=== PATIENT | female | born 1965 | race Caucasian/White ===

== ENCOUNTER 2019-05-10 23:18 | Day surgery (SDC) | payer OTHER ==
--- NOTE | 2019-05-10 23:46 | ED Physician Documentation ---
PD HPI FEMALE - Stated complaint Stated Complaint: R SIDE PAIN - Chief complaint Chief Complaint: Abd Pain - History obtained from History obtained from: Patient - History of Present Illness Timing - onset: How many days ago (3) Timing - duration: Days (3) Timing - details: Gradual onset Pain level max: 4 Associated symptoms: Fever, Abdominal pain. No: Dysuria, Urinary frequency, Hematuria Contributing factors: No: Similar symptoms before: Has not had sx before Recently seen: Not recently seen - Additional information Additional information: Is a 53-year-old woman who presents with her fianc complaints that she is got pain swelling and tightness on the right side of her abdomen. This started to develop about 3 days prior to presentation she thought she might be constipated so she took some senna [id number] it did not relieve any of her symptoms. The pains been getting increasingly worse and her daughter finally convinced her to come in to have it evaluated. The pain is worse with movement and walking. She rates it now to 4 out of 10 and did not take anything for it. She had a fever of 100.6 at home. Denies any recent illnessIs a 53-year-old woman who presents with her fianc complaints that she is got pain swelling and tightness on the right side of her abdomen. This started to develop about 3 days prior to presentation she thought she might be constipated so she took some senna [id number] it did not relieve any of her symptoms. The pains been getting increasingly worse and her daughter finally convinced her to come in to have it evaluated. The pain is worse with movement and walking. She rates it now to 4 out of 10 and did not take anything for it. She had a fever of 100.6 at home. Denies any recent illness or dysuria. Denies . She is not diabetic. She has had a bilateral tubal ligation. Review of Systems Constitutional: reports: Fever Throat: denies: Sore throat Cardiac: denies: Chest pain / pressure Respiratory: denies: Dyspnea, Cough GI: reports: Abdominal Pain, Nausea. denies: Vomiting, Diarrhea : denies: Dysuria, Frequency Skin: denies: Rash Musculoskeletal: denies: Back pain Neurologic: denies: Syncope, LOC Endocrine: reports: Other (She is not diabetic) PD PAST MEDICAL HISTORY - Present Medications Home Medications: Ambulatory Orders Medication Instructions Recorded Confirmed FLUoxetine [PROzac] 40 mg PO DAILY 05/10/19 05/10/19 Losartan [Cozaar] 50 mg PO DAILY 05/10/19 05/10/19 [place]-3/Dha/Epa/Fish Oil [Fish Oil 1 each PO DAILY 05/10/19 05/10/19 1,000 mg Softgel] RX: Hydrochlorothiazide 12.5 mg PO DAILY 05/10/19 05/10/19 RX: Magnesium 0 mg PO DAILY 05/10/19 05/10/19 RX: Simvastatin 40 mg PO DAILY 05/10/19 05/10/19 busPIRone [Buspar] 20 mg PO BID 05/10/19 05/10/19 metFORMIN [Glucophage] 500 mg PO DAILY 05/10/19 05/10/19 - Allergies Allergies/Adverse Reactions: Allergies Allergy/AdvReac Type Severity Reaction Status Date / Time No Known Drug Allergies Allergy Verified 05/10/19 23:25 PD ED PE NORMAL - Vitals Vital signs reviewed: Yes - General General: Alert and oriented X 3, No acute distress, Well developed/nourished - HEENT HEENT: Atraumatic, PERRL, Pharynx benign, Other (Mucous membranes are dry) - Neck Neck: Supple, no meningeal sign, No adenopathy, Thyroid normal - Cardiac Cardiac: RRR, No murmur, Strong equal pulses - Respiratory Respiratory: No respiratory distress, Clear bilaterally - Abdomen Abdomen: Other (Hypoactive bowel tones. 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, No motor deficit, No sensory deficit - Psych Psych: Normal mood, Normal affect Results - Vitals Vitals: Vital Signs - 24 hr 05/10/19 05/10/19 05/11/19 23:21 23:30 01:24 Temperature 37.4 C Heart Rate 95 80 Respiratory 18 16 18 Rate Blood Pressure 153/95 H 139/70 H O2 Saturation 98 96 05/11/19 05/11/19 03:12 05:00 Temperature Heart Rate 85 70 Respiratory 10 L Rate Blood Pressure 139/70 H 122/69 O2 Saturation 92 93 Oxygen O2 Source Room air - Labs Labs: Laboratory Tests 05/11/19 05/11/19 05/11/19 00:00 00:00 00:10 WBC 14.4 H RBC 4.29 Hgb 11.9 L Hct 36.6 L MCV 85.3 MCH 27.7 MCHC 32.5 RDW 15.3 H Plt Count 238 MPV 10.4 Neut # (Auto) 10.2 H Lymph # (Auto) 2.7 [place] # (Auto) 1.2 H Eos # (Auto) 0.1 Baso # (Auto) 0.0 Absolute Nucleated RBC 0.00 Nucleated RBC % 0.0 Sodium Potassium Chloride Carbon Dioxide Anion Gap BUN Creatinine Estimated GFR (MDRD) Glucose Calcium Total Bilirubin AST ALT Alkaline Phosphatase Total Protein Albumin Globulin Albumin/Globulin Ratio Lipase Urine Color YELLOW Urine Clarity CLEAR Urine pH 6.0 Ur Specific [place] <=1.005 <1.005 Urine Protein NEGATIVE Urine Glucose (UA) 250 H Urine Ketones NEGATIVE Urine Occult Blood SMALL H Urine Nitrite NEGATIVE Urine Bilirubin NEGATIVE Urine Urobilinogen 0.2 (NORMAL) Ur Leukocyte Esterase NEGATIVE Urine RBC 0-5 Urine WBC 0-3 Ur Squamous Epith Cells MOD Squamous H Urine Bacteria Rare Ur Microscopic Review INDICATED Urine Culture Comments NOT INDICATED Urine HCG, Qual NEGATIVE 05/11/19 00:10 WBC RBC Hgb Hct MCV MCH MCHC RDW Plt Count MPV Neut # (Auto) Lymph # (Auto) [place] # (Auto) Eos # (Auto) Baso # (Auto) Absolute Nucleated RBC Nucleated RBC % Sodium 137 Potassium 3.6 Chloride 103 Carbon Dioxide 24 Anion Gap 10.0 BUN 8 Creatinine 0.7 Estimated GFR (MDRD) 88 L Glucose 131 H Calcium 9.0 Total Bilirubin 0.3 AST 17 ALT 24 Alkaline Phosphatase 76 Total Protein 7.9 Albumin 3.4 Globulin 4.5 H Albumin/Globulin Ratio 0.8 L Lipase 30 Urine Color Urine Clarity Urine pH Ur Specific [place] Urine Protein Urine Glucose (UA) Urine Ketones Urine Occult Blood Urine Nitrite Urine Bilirubin Urine Urobilinogen Ur Leukocyte Esterase Urine RBC Urine WBC Ur Squamous Epith Cells Urine Bacteria Ur Microscopic Review Urine Culture Comments Urine HCG, Qual PD MEDICAL DECISION MAKING - ED course Complexity details: reviewed results, re-evaluated patient, d/w patient, d/w salon sales consultant ED course: Patient initially declined any pain medications. Her white blood cell count was 14.4. Her CT scan confirmed acute appendicitis this was discussed with Dr. Brush and she requested Zosyn and will take pateint to OR in the morning. Plan discussed with patient. She did agree to pain medication. Departure - Departure Disposition: ED Transfer to [facility] Clinical Impression: Appendicitis
[2019-05-10] MEDS ORDERED: SODIUM CHLORIDE 0.9% 1,000 ML IV ONE (23:54)
[2019-05-11] MEDS ORDERED: IOVERSOL 320 100 ML VIAL IVP ONE ×2 (00:20→01:20)
[2019-05-11 00:30] LABS: BASOPHILS % (AUTO) 0.1 %; EOSINOPHILS # (AUTO) 0.1 10^3/uL (0.0-0.7); EOSINOPHILS % (AUTO) 0.9 %; HGB - HEMOGLOBIN 11.9 g/dL (12.0-16.0); LYMPHOCYTES # (AUTO) 2.7 10^3/uL (1.5-3.5); LYMPHOCYTES % (AUTO) 18.8 %; MEAN CORPUSCULAR HEMOGLOBIN 27.7 pg (27.0-31.0); MEAN CORPUSCULAR HGB CONC 32.5 g/dL (32.0-36.0); MEAN CORPUSCULAR VOLUME 85.3 fL (81.0-99.0); MEAN PLATELET VOLUME 10.4 fL (7.9-10.8); MONOCYTES # (AUTO) 1.2 10^3/uL (0.0-1.0); MONOCYTES % (AUTO) 8.3 %; NEUTROPHILS # (AUTO) 10.2 10^3/uL (1.5-6.6); NEUTROPHILS % (AUTO) 71.2 %; PLT - PLATELET COUNT 238 10^3/uL (130-450); RED BLOOD COUNT 4.29 10^6/uL (4.20-5.40); RED CELL DISTRIBUTION WIDTH 15.3 % (12.0-15.0); WHITE BLOOD COUNT 14.4 x10^3/uL (4.8-10.8)
[2019-05-11 00:32] LABS: BILIRUBIN,URINE NEGATIVE (NEGATIVE); CLARITY,URINE CLEAR (CLEAR); GLUCOSE, URINE (UA) 250 mg/dL (NEGATIVE); KETONES,URINE (UA) NEGATIVE (NEGATIVE); LEUKOCYTE ESTERASE, URINE NEGATIVE (NEGATIVE); NITRITE,URINE NEGATIVE (NEGATIVE); OCCULT BLOOD,URINE SMALL (NEGATIVE); PROTEIN,URINE NEGATIVE (NEGATIVE); UROBILINOGEN,URINE 0.2 (NORMAL) E.U./dL (NORMAL)
[2019-05-11 00:42] LABS: ALBUMIN 3.4 g/dL (3.2-5.5); ALBUMIN/GLOBULIN RATIO 0.8 (1.0-2.2); BILIRUBIN,TOTAL 0.3 mg/dL (0.2-1.0); CREATININE 0.7 mg/dL (0.4-1.0); TOTAL PROTEIN 7.9 g/dL (6.7-8.2)
[2019-05-11 00:45] LABS: BACTERIA,URINE Rare /HPF (None Seen); HCG UR QUAL NEGATIVE; RBC,URINE 0-5 /HPF (0-5); SQUAMOUS EPITHELIAL CELL,UR MOD Squamous (<= Few)
--- NOTE | 2019-05-11 01:31 | CT Report ---
Reason: Abd pain Procedure Date: 05/11/2019 Accession Number: [id number] / [id number] Procedure: CT - Abdomen/Pelvis W CPT Code: FULL RESULT: EXAM: CT ABDOMEN AND PELVIS EXAM DATE: 05/11/2019 01:15 AM. CLINICAL HISTORY: Abdominal pain. COMPARISONS: None. TECHNIQUE: Routine helical CT imaging was performed through the abdomen and pelvis. IV contrast: 100 mL OPTI 320. Enteric contrast: No. Reconstructions: Coronal and sagittal. In accordance with CT protocol optimization, one or more of the following dose reduction techniques were utilized for this exam: automated exposure control, adjustment of mA and/or KV based on patient size, or use of iterative reconstructive technique. FINDINGS: Lung Bases: Unremarkable. Liver: Normal. No masses. Gallbladder/Bile Ducts: There is a 2.4 cm gallstone. No evidence of cholecystitis or bile duct obstruction. Spleen: Normal. Pancreas: Normal. Adrenal Glands: Normal. Kidneys: Multiple right renal cysts measuring up to 5.4 cm. No suspicious renal mass or hydronephrosis. Peritoneal Cavity/Bowel: No bowel obstruction. The appendix is dilated to 8 mm. There is mural thickening and periappendiceal inflammatory stranding consistent with acute appendicitis. No evidence of perforation or abscess. Pelvic Organs: The uterus is mildly enlarged with lobulated contours secondary to small fibroids. No pelvic mass or lymphadenopathy. No fluid collections. Urinary bladder is unremarkable. Vasculature: No aneurysms or other significant abnormality. Bones: No significant abnormality. Other: None. IMPRESSION: 1. Acute appendicitis. 2. Cholelithiasis. 3. Uterine fibroids. RADIA
[2019-05-11] MEDS ORDERED: PIPERACILLIN/TAZOBACTAM 4.5 GM in SODIUM CHLORIDE 0.9% MINIBAG 100 ML IV STA ×2 (01:43→08:33)
[2019-05-11] MEDS ORDERED: HYDROmorphone 1 MG/ML CARPUJECT IVP STA ×2 (01:43→07:02)
[2019-05-11] MEDS ORDERED: ONDANSETRON 4 MG/2 ML VIAL IVP STA (01:43)
--- NOTE | 2019-05-11 08:52 | HISTORY & PHYSICAL EXAMINATION ---
HPI - Admitted From Admitted from: ED - History Obtained From Records Reviewed: RN notes reviewed, Old records reviewed History obtained from: Patient Exam limitations: No limitations - History of Present Illness Pain/Problem Location Description: Right lower quadrant pain Severity at the worst: reports: Moderate Pain Quality: reports: Dull, Aching, Throbbing Context-Pain started w/: reports: Rest Timing: reports: Gradual onset Duration: reports: Days: (3) Improved with: reports: Nothing Worsened by: reports: Movement, Palpation Associated symptoms: reports: General Weakness, Other (Fever of 100.6 at home) PMH/PSH - Past Medical History Cardiovascular: positive: Hypertension Respiratory: positive: None Neuro: positive: None Endocrine/Autoimmune: positive: Other GI: positive: Chronic constipation : positive: Incontinence Psych: positive: Depression, Anxiety MRSA Hx?: No Other Past Medical History: metabolic syndrom AlC 6.1 - Past Surgical History 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 ligation Social & Family Hx - Living Situation Living Arrangement: At home - Social History Does the pt smoke?: No Smoking Status: Former smoker Does the pt drink ETOH?: Yes ETOH Use: Liquor Does the pt have substance abuse?: No - POLST Patient has POLST: No Meds/Allgy - Home Medications Home Medications: Ambulatory Orders Medication Instructions Recorded Confirmed FLUoxetine [PROzac] 40 mg PO DAILY 05/10/19 05/10/19 Hydrochlorothiazide 12.5 mg PO DAILY 05/10/19 05/10/19 Losartan [Cozaar] 50 mg PO DAILY 05/10/19 05/10/19 Magnesium 0 mg PO DAILY 05/10/19 05/10/19 [place]-3/Dha/Epa/Fish Oil [Fish Oil 1 each PO DAILY 05/10/19 05/10/19 1,000 mg Softgel] Simvastatin 40 mg PO DAILY 05/10/19 05/10/19 busPIRone [Buspar] 20 mg PO BID 05/10/19 05/10/19 metFORMIN [Glucophage] 500 mg PO DAILY 05/10/19 05/10/19 - Allergies Allergies/Adverse Reactions: Allergies Allergy/AdvReac Type Severity Reaction Status Date / Time No Known Drug Allergies Allergy Verified 05/10/19 23:25 Review of Systems - Constitutional Constitutional: reports: Fatigue, Fever, Poor appetite - Eyes Eyes: denies: Pain, Irritation, Blurred vision - Ears, Nose & Throat Ears, Nose & Throat: denies: Tinnitus, Vertigo - Cardiovascular Cariovascular: denies: Irregular heart rate, Palpitations, Chest pain - Respiratory Respiratory: denies: Cough, Sputum production, Wheezing, Orthopnea - Gastrointestinal Gastrointestinal: reports: Abdominal pain, Constipation, Nausea, Bloating, Poor appetite - Genitourinary Genitourinary: denies: Dysuria, Frequency, Urgency, Hematuria - Musculoskeletal Musculoskeletal: denies: Limited range of motion, Muscle weakness - Integumentary Integumentary: denies: Rash, Pruritis, Lesions - Neurological Neurological: denies: General weakness, Focal weakness, Headache - Endocrine Endocrine: denies: Polyuria, Polydypsia - Hematologic/Lymphatic Hematologic/Lymphatic: denies: Anemia, Bruising, Petechiae, Blood clots - All Other Systems All Other Systems: reports: Reviewed and negative Exam - Vital Signs Reviewed Vital Signs: Yes Vital Signs: Vital Signs x48h Temp Pulse Resp BP Pulse Ox 05/11/19 08:02 36.7 C 68 14 118/72 96 05/11/19 06:00 70 12 122/72 93 05/11/19 05:00 70 10 L 122/69 93 05/11/19 03:12 85 139/70 H 92 05/11/19 01:24 80 18 139/70 H 96 - Physical Exam General Appearance: positive: No acute distress Eyes Bilateral: positive: Normal inspection, PERRL, EOMI ENT: positive: ENT inspection nml, Pharynx nml Neck: positive: Nml inspection, Thyroid nml, No JVD, Trachea midline, Thyromegaly. negative: Lymphadenopathy (R), Lymphadenopathy (L) Cardiovascular: positive: Regular rate & rhythm, No murmur, No gallop Peripheral Pulses: positive: 1+ Abdomen: positive: Tenderness (Right lower quadrant and periumbilical) Back: positive: Nml inspection. negative: CVA tenderness (R), CVA tenderness (L) Skin: positive: Color nml Extremities: positive: Non-tender Neurologic/Psychiatric: positive: Oriented x3, CN's nml (2-12) Results - Lab Results Fish Bones: 05/11/19 00:10 05/11/19 00:10 Other Lab Results: Lab Results x24hrs 05/11/19 05/11/19 05/11/19 Range/Units 00:10 00:10 00:00 WBC 14.4 H (4.8-10.8) x10^3/uL RBC 4.29 (4.20-5.40) 10^6/uL Hgb 11.9 L (12.0-16.0) g/dL Hct 36.6 L (37.0-47.0) % MCV 85.3 (81.0-99.0) fL MCH 27.7 (27.0-31.0) pg MCHC 32.5 (32.0-36.0) g/dL RDW 15.3 H (12.0-15.0) % Plt Count 238 (130-450) 10^3/uL MPV 10.4 (7.9-10.8) fL Neut # (Auto) 10.2 H (1.5-6.6) 10^3/uL Lymph # (Auto) 2.7 (1.5-3.5) 10^3/uL [place] # (Auto) 1.2 H (0.0-1.0) 10^3/uL Eos # (Auto) 0.1 (0.0-0.7) 10^3/uL Baso # (Auto) 0.0 (0.0-0.1) 10^3/uL Absolute Nucleated RBC 0.00 x10^3/uL Nucleated RBC % 0.0 /100WBC Sodium 137 (135-145) mmol/L Potassium 3.6 (3.5-5.0) mmol/L Chloride 103 (101-111) mmol/L Carbon Dioxide 24 (21-32) mmol/L Anion Gap 10.0 (6-13) BUN 8 (6-20) mg/dL Creatinine 0.7 (0.4-1.0) mg/dL Estimated GFR (MDRD) 88 L (>89) Glucose 131 H (70-100) mg/dL Calcium 9.0 (8.5-10.3) mg/dL Total Bilirubin 0.3 (0.2-1.0) mg/dL AST 17 (10-42) IU/L ALT 24 (10-60) IU/L Alkaline Phosphatase 76 (42-121) IU/L Total Protein 7.9 (6.7-8.2) g/dL Albumin 3.4 (3.2-5.5) g/dL Globulin 4.5 H (2.1-4.2) g/dL Albumin/Globulin Ratio 0.8 L (1.0-2.2) Lipase 30 (22-51) U/L Urine Color Urine Clarity (CLEAR) Urine pH (5.0-7.5) PH Ur Specific [place] <1.005 (1.002-1.030) Urine Protein (NEGATIVE) mg/dL Urine Glucose (UA) (NEGATIVE) mg/dL Urine Ketones (NEGATIVE) mg/dL Urine Occult Blood (NEGATIVE) Urine Nitrite (NEGATIVE) Urine Bilirubin (NEGATIVE) Urine Urobilinogen (NORMAL) E.U./dL Ur Leukocyte Esterase (NEGATIVE) Urine RBC (0-5) /HPF Urine WBC (0-5) /HPF Ur Squamous Epith Cells (<= Few) Urine Bacteria (None Seen) /HPF Ur Microscopic Review Urine Culture Comments Urine HCG, Qual NEGATIVE 05/11/19 Range/Units 00:00 WBC (4.8-10.8) x10^3/uL RBC (4.20-5.40) 10^6/uL Hgb (12.0-16.0) g/dL Hct (37.0-47.0) % MCV (81.0-99.0) fL MCH (27.0-31.0) pg MCHC (32.0-36.0) g/dL RDW (12.0-15.0) % Plt Count (130-450) 10^3/uL MPV (7.9-10.8) fL Neut # (Auto) (1.5-6.6) 10^3/uL Lymph # (Auto) (1.5-3.5) 10^3/uL [place] # (Auto) (0.0-1.0) 10^3/uL Eos # (Auto) (0.0-0.7) 10^3/uL Baso # (Auto) (0.0-0.1) 10^3/uL Absolute Nucleated RBC x10^3/uL Nucleated RBC % /100WBC Sodium (135-145) mmol/L Potassium (3.5-5.0) mmol/L Chloride (101-111) mmol/L Carbon Dioxide (21-32) mmol/L Anion Gap (6-13) BUN (6-20) mg/dL Creatinine (0.4-1.0) mg/dL Estimated GFR (MDRD) (>89) Glucose (70-100) mg/dL Calcium (8.5-10.3) mg/dL Total Bilirubin (0.2-1.0) mg/dL AST (10-42) IU/L ALT (10-60) IU/L Alkaline Phosphatase (42-121) IU/L Total Protein (6.7-8.2) g/dL Albumin (3.2-5.5) g/dL Globulin (2.1-4.2) g/dL Albumin/Globulin Ratio (1.0-2.2) Lipase (22-51) U/L Urine Color YELLOW Urine Clarity CLEAR (CLEAR) Urine pH 6.0 (5.0-7.5) PH Ur Specific [place] <=1.005 (1.002-1.030) Urine Protein NEGATIVE (NEGATIVE) mg/dL Urine Glucose (UA) 250 H (NEGATIVE) mg/dL Urine Ketones NEGATIVE (NEGATIVE) mg/dL Urine Occult Blood SMALL H (NEGATIVE) Urine Nitrite NEGATIVE (NEGATIVE) Urine Bilirubin NEGATIVE (NEGATIVE) Urine Urobilinogen 0.2 (NORMAL) (NORMAL) E.U./dL Ur Leukocyte Esterase NEGATIVE (NEGATIVE) Urine RBC 0-5 (0-5) /HPF Urine WBC 0-3 (0-5) /HPF Ur Squamous Epith Cells MOD Squamous H (<= Few) Urine Bacteria Rare (None Seen) /HPF Ur Microscopic Review INDICATED Urine Culture Comments NOT INDICATED Urine HCG, Qual - Diagnostic Imaging Results Diagnostic Imaging Results: positive: Final report reviewed Diagnostic Imaging Results Comments: Acute appendicitis and cholelithiasis. Impression/Plan - Problem List Problem List: Acute appendicitis - I have recommended laparoscopic appendectomy with indicated procedure. We have discussed the risks and benefits of the procedure and the patient has expressed as desire to complete it today. The surgery crew is on their way in Cholelithiasis - symptomatic at this time. I have discussed this with the patient. She is diabetic and will need to have an elective cholecystectomy in the future. I do not recommend it be combined with the emergency procedure as it increases her risk of complications in the setting of acute infection.
--- NOTE | 2019-05-11 09:15 | ANESTHESIA ---
Pre-Anesthesia VS, & Labs - Diagnosis appendicitis - Procedure laparoscopic appendectomy Vital Signs: Temp Pulse Resp BP Pulse Ox 36.7 C 68 14 118/72 96 05/11/19 08:02 05/11/19 08:02 05/11/19 08:02 05/11/19 08:02 05/11/19 08:02 Height 5 ft 7 in Weight (kg) 99.79 kg Body Mass Index 34.4 - NPO >8 hours - Is Patient ?: No - Lab Results Current Lab Results: Laboratory Tests 05/11/19 00:10: Sodium 137, Potassium 3.6, Chloride 103, Carbon Dioxide 24, Anion Gap 10.0, BUN 8, Creatinine 0.7, Estimated GFR (MDRD) 88 L, Glucose 131 H, Calcium 9.0, Total Bilirubin 0.3, AST 17, ALT 24, Alkaline Phosphatase 76, Total Protein 7.9, Albumin 3.4, Globulin 4.5 H, Albumin/Globulin Ratio 0.8 L, Lipase 30 05/11/19 00:10: WBC 14.4 H, RBC 4.29, Hgb 11.9 L, Hct 36.6 L, MCV 85.3, MCH 27.7, MCHC 32.5, RDW 15.3 H, Plt Count 238, MPV 10.4, Neut # (Auto) 10.2 H, Lymph # (Auto) 2.7, [place] # (Auto) 1.2 H, Eos # (Auto) 0.1, Baso # (Auto) 0.0, Absolute Nucleated RBC 0.00, Nucleated RBC % 0.0 Lab results reviewed: Yes Fish Bones: 05/11/19 00:10 05/11/19 00:10 Home Medications and Allergies Home Medications: Ambulatory Orders FLUoxetine [PROzac] 40 mg PO DAILY 05/10/19 Hydrochlorothiazide 12.5 mg PO DAILY 05/10/19 Losartan [Cozaar] 50 mg PO DAILY 05/10/19 Magnesium 0 mg PO DAILY 05/10/19 [place]-3/Dha/Epa/Fish Oil [Fish Oil 1,000 mg Softgel] 1 each PO DAILY 05/10/19 Simvastatin 40 mg PO DAILY 05/10/19 busPIRone [Buspar] 20 mg PO BID 05/10/19 metFORMIN [Glucophage] 500 mg PO DAILY 05/10/19 FLUoxetine [PROzac] 40 mg PO DAILY 05/10/19 Hydrochlorothiazide 12.5 mg PO DAILY 05/10/19 Losartan [Cozaar] 50 mg PO DAILY 05/10/19 Magnesium 0 mg PO DAILY 05/10/19 [place]-3/Dha/Epa/Fish Oil [Fish Oil 1,000 mg Softgel] 1 each PO DAILY 05/10/19 Simvastatin 40 mg PO DAILY 05/10/19 busPIRone [Buspar] 20 mg PO BID 05/10/19 metFORMIN [Glucophage] 500 mg PO DAILY 05/10/19 Allergies/Adverse Reactions: Allergies Allergy/AdvReac Type Severity Reaction Status Date / Time No Known Drug Allergies Allergy Verified 05/10/19 23:25 Anes History & Medical History - Anesthetic History Anesthesia Complications: reports: No previous complications Family history of Anesthesia Complications: Denies Family history of Malignant Hyperthermia: Denies - Medical History Cardiovascular: reports: Hypertension Pulmonary: reports: None Gastrointestinal: reports: Chronic constipation Urinary: reports: Incontinence Neuro: reports: None Endocrine/Autoimmune: reports: Other Blood Disorders: reports: Anemia Smoking Status: Former smoker Other Past Medical History: metabolic syndrom AlC 6.1 - Surgical History General: Other Gynecologic: Tubal ligation Exam General: Alert, Oriented x3, Cooperative, No acute distress Dental: WNL Mouth Openin Fingerbreadth Neck Mobility: Normal Mallampati classification: III Thyromental Distance: 4-6 cm Respiratory: Lungs clear, Normal breath sounds, No respiratory distress, No accessory muscle use Cardiovascular: Regular rate, Normal S1, Normal S2, No murmurs Plan Anesthesia Type: General Consent for Procedure(s) Verified and Reviewed: Yes Code Status: Attempt Resuscitation ASA classification: 2-Mild systemic disease Is this case an emergency?: Yes
[2019-05-11] MEDS ORDERED: LIDOCAINE MPF 1%-EPI 1:200000 30 ML VIAL ONE (09:29)
[2019-05-11] MEDS ORDERED: BUPIVACAINE 0.5% PF 10 ML VIAL ONE (09:30)
[2019-05-11] MEDS ORDERED: ONDANSETRON 4 MG/2 ML VIAL IVP ONE (09:42)
[2019-05-11] MEDS ORDERED: fentaNYL 100 MCG/2 ML VIAL IVP ONE (09:42)
[2019-05-11] MEDS ORDERED: LIDOCAINE-MPF 2% 5 ML VIAL IM ONE (09:42)
[2019-05-11] MEDS ORDERED: ROCURONIUM 50 MG/5 ML VIAL IVP ONE (09:42)
[2019-05-11] MEDS ORDERED: ACETAMINOPHEN 1,000 MG/100 ML 100 ML IV ONE (09:42)
[2019-05-11] MEDS ORDERED: KETOROLAC 30 MG/ML VIAL IVP ONE (09:42)
[2019-05-11] MEDS ORDERED: DEXAMETHASONE 4 MG/ML VIAL IVP ONE (09:42)
[2019-05-11] MEDS ORDERED: PROPOFOL 200 MG/20 ML VIAL IVP ONE (09:42)
[2019-05-11] MEDS ORDERED: LIDOCAINE 1%-EPI 1:100000 30 ML MDV SUBQ ONE ×2 (10:17)
[2019-05-11] MEDS ORDERED: BUPIVACAINE 0.5% PF 30 ML VIAL SUBQ ONE ×2 (10:17)
[2019-05-11] MEDS ORDERED: SUGAMMADEX 200 MG/2 ML VIAL IVP ONE (10:36)
--- NOTE | 2019-05-11 10:42 | OPERATIVE REPORT ---
Operative Report - General Procedure Date: 05/11/19 Planned Procedure: Laparoscopic appendectomy Pre-Op Diagnosis: Acute appendicitis Procedure Performed: Laparoscopic appendectomy Post Op Diagnosis: Same - Procedure Note Primary Surgeon: Gonsalo Anesthesia Provider: MD An Anesthesia Technique: General ET tube, Local Pathology: Appendix to pathology in formalin Estimated Blood Loss (mL): 10 Indications: Acute appendicitis Findings: Acute separative appendicitis without gross evidence of perforation Complications: None apparent - Other Other Information/Narrative: After obtaining informed consent, the patient is brought to the operating room and placed in the supine position on the operating table. Following successful induction of general endotracheal anesthesia, appropriate padding of all bony prominences, and placement appropriate monitors, the abdomen is prepped and draped in the standard surgical fashion. A timeout was held per NMOAP protocol. Following infiltration with local anesthetic to create a field block, an incision was created inferior to the umbilicus and carried down through the skin and subtendinous tissue to reveal the fascia below. 2-0 Vicryl retention sutures were placed on either side of the midline and the abdomen was entered under direct vision using a 15 blade scalpel. A 10 mm blunt Jay balloon trocar was placed in the abdominal cavity and it was insufflated to 15 mmHg pressure.Patient was placed in Trendelenburg position with the left side rotated toward the floor.A 5 mm trocar was placed in the right upper quadrant and a second 5 mm trocar placed midway between the umbilicus and the pubis. Both of the sites were infiltrated with local anesthetic prior to placing his trochars. The right lower quadrant was examined and a small phlegmon was identified. Careful dissection revealed the appendix in the into cecal position. A window was created at the junction of the appendix and the cecum. A load of the lap scopic LESA stapling device was used to liberate the appendix from its attachment to the cecum. A second load was used to ligate the mesoappendix. The appendix was then placed in a laparoscopic Endo Catch bag and removed via the umbilical port. The wound was checked for hemostasis and irrigated with warm saline solution. It was aspirated free of all fluid and particulate matter. All staple lines were examined and there was no evidence of bleeding or injury to any portion of the bowel. The patient was then flattened and the trochars were removed under direct vision. The abdomen was carefully desufflated. The umbilical incision was closed with interrupted #1 Prolene sutures and 0 Vicryl sutures left in place as retention sutures.The remaining skin incisions were miguel sed with Monocryl sutures. All sponge, needle, and instrument counts were correct at the conclusion of the case. The patient was allowed to awaken from anesthesia without difficulty and taken to the postanesthesia care unit in good condition.
[2019-05-11] MEDS ORDERED: LACTATED RINGERS 1,000 ML IV ONE ×3 (10:45→11:01)
[2019-05-11] MEDS ORDERED: ONDANSETRON 4 MG/2 ML VIAL IVP PRN ×2 (10:52→12:10)
[2019-05-11] MEDS ORDERED: HYDROmorphone 0.5 MG/0.5 ML SYRINGE IVP PRN ×2 (10:52→12:10)
[2019-05-11] MEDS ORDERED: oxyCODONE 5 MG TABLET PO PRN ×2 (10:52→12:10)
[2019-05-11 13:48] VITALS: BP 122/70
== END 2019-05-11 14:21 | disposition home or self-care (01) ==
LOC: ED 23:18 → SDS 05-11 08:34 → ED 05-11 09:41 → SDS 05-11 11:50 → MS2 05-11 11:53 → SDS 05-11 14:21
PROVIDERS: ATTEND Surgery
PROC: 0DTJ4ZZ Resection of Appendix, Percutaneous Endoscopic Approach (ICD-10-PCS; principal; 2019-05-11 09:17)
DX: K35.33 Acute appendicitis with perforation, localized peritonitis, and gangrene, with abscess (principal); K80.20 Calculus of gallbladder without cholecystitis without obstruction; I10 Essential (primary) hypertension; K59.09 Other constipation; E88.81 Metabolic syndrome and other insulin resistance; E11.9 Type 2 diabetes mellitus without complications; Z79.84 Long term (current) use of oral hypoglycemic drugs; Z98.51 Tubal ligation status; Z87.891 Personal history of nicotine dependence; Z79.899 Other long term (current) drug therapy
CPT/HCPCS: 36415; 44970; 74177; 80053; 81001; 81025; 83690; 85025; 93005; 96361; 96365; 96375; 96376; 99284; 99285; A9270; J0131; J1170; J7120; Q9967; 81003; 87086